=== PATIENT | female | born 1985 | race Caucasian/White ===

== ENCOUNTER 2019-07-03 12:54 | Emergency (ER) | payer OTHER ==
[~2019-07-03] VITALS: Ht 152.4 cm; Wt 55.8 kg
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
--- NOTE | 2019-07-03 14:01 | NUR ---
PT TAKEN TO CT
--- NOTE | 2019-07-03 14:20 | NUR ---
PT BACK FROM CT
--- NOTE | 2019-07-03 15:14 | NUR ---
Patient medically cleared to book. Written and verbal after care instructions given. Patient verbalizes understanding of instruction.
[2019-07-03 15:15] VITALS: BP 121/81
== END 2019-07-03 15:16 ==
LOC: ER 12:59
DX: S00.12XA Contusion of left eyelid and periocular area, initial encounter (principal); Y04.0XXA Assault by unarmed brawl or fight, initial encounter; Y93.89 Activity, other specified; Y92.89 Other specified places as the place of occurrence of the external cause; Y99.8 Other external cause status
CPT/HCPCS: 70486; 99284; J7030